=== PATIENT | female | born 1960 | race Caucasian/White ===

== ENCOUNTER → 2016-09-27 | Outpatient (CLI) | payer OTHER ==
[~2016-09-27] VITALS: Ht 165.1 cm; Wt 66.7 kg
[~2016-09-27] MED LIST: ALENDRONATE SOD10 MG PO; DAILY VALUE1 EACH PO; FISH OIL 1,0001 EAC7 PO; MIRALAX17 GM PO; VICODIN 5-3001 EACH PO; VITAMIN D31000 UNI2 PO
== END | disposition home or self-care (01) ==
LOC: AMB 07:49
DX: R10.11 Right upper quadrant pain (principal); K83.8 Other specified diseases of biliary tract; R93.3 Abnormal findings on diagnostic imaging of other parts of digestive tract
CPT/HCPCS: J0330; J1100; J2250; J2405; J3010